=== PATIENT | male | born 1970 | race Caucasian/White ===

== ENCOUNTER 2020-10-30 19:46 | Inpatient (IN) | payer OTHER ==
[~2020-10-30] VITALS: Ht 182.9 cm; Wt 99.9 kg
[2020-10-30] MEDS ORDERED: LIPITOR80 MG PO ×2 (20:12→20:13)
[2020-10-30] MEDS ORDERED: Hydroxyzine HCl50 MG PO (20:12)
[2020-10-30] MEDS ORDERED: AMLODIPINE BESY10 MG PO (20:12)
[2020-10-30] MEDS ORDERED: JARDIANCE10 MG PO (20:12)
[2020-10-30] MEDS ORDERED: LISI5 PO (20:13)
[2020-10-30] MEDS ORDERED: METFORMIN HCL1000 M8 PO (20:13)
[2020-10-30] MEDS ORDERED: Lisinopril2.5 MG PO (20:13)
[2020-10-30 20:23] LABS: PCO2 Arterial 32.7 mmHg (35-45); PO2 Arterial 57.6 mmHg (80-100); pH Blood Arterial 7.47 (7.35-7.45)
[2020-10-30 21:00] LABS: BASOPHILS ABSOLUTE AUTO 0.03 K/mm3 (0.00-0.23); BASOPHILS PERCENT AUTO 0 % (0-2); EOSINOPHILS PERCENT AUTO 0 % (0-6); Hematocrit 40.1 % (37.0-53.0); Hemoglobin 13.7 g/dL (13.5-17.5); IMMATURE GRAN ABSOLUTE AUTO 0.16 K/mm3 (0.00-0.10); IMMATURE GRAN PERCENT AUTO 2 % (0-1); LYMPHOCYTES ABSOLUTE AUTO 0.77 K/mm3 (0.84-5.20); LYMPHOCYTES PERCENT AUTO 8 % (21-46); MONOCYTES ABSOLUTE AUTO 0.23 K/mm3 (0.16-1.47); MONOCYTES PERCENT AUTO 2 % (4-13); Mean Corpuscular HGB 29.8 pg (26.0-34.0); Mean Corpuscular HGB Conc 34.2 g/dL (31.5-36.5); Mean Corpuscular Volume 87 fL (80-100); Mean Platelet Volume 10.5 fL (9.1-12.4); NEUTROPHILS ABSOLUTE AUTO 8.55 K/mm3 (1.96-9.15); NEUTROPHILS PERCENT AUTO 88 % (41-73); NRBC ABSOLUTE 0.02 K/mm3 (0.00-0.02); NRBC Auto 0.2 /100 WBC (0.0-0.2); Platelet Count 269 K/mm3 (150-400); RDW Coefficient Variation 13.3 % (11.7-14.2); RDW Standard Deviation 42.3 fL (35.1-46.3); White Blood Cell Count 9.74 K/mm3 (4.00-11.30)
[2020-10-30 21:18] LABS: Alanine Aminotransfer (ALT/SGP 40 U/L (12-78); Albumin, Blood 2.7 g/dL (3.4-5.0); Albumin/Globulin Ratio 0.5 (0.8-1.8); Alk Phos 56 U/L (50-136); Anion Gap 9 mmol/L (6-16); Aspartate Aminotrans (AST/SGOT 51 U/L (12-37); Bilirubin, Total 0.5 mg/dL (0.1-1.0); Blood Urea Nitrogen 14 mg/dL (8-24); CO2, Blood 24 mmol/L (21-32); Calcium, Blood 8.4 mg/dL (8.5-10.1); Chloride, Blood 107 mmol/L (98-108); Creatinine, Blood 0.88 mg/dL (0.60-1.20); Globulin, Blood 5.1 g/dL (2.2-4.0); Glomerular Filtration Rate >60 (60-); Glucose, Blood 220 mg/dL (70-99); Potassium, Blood 3.3 mmol/L (3.5-5.5); Sodium, Blood 140 mmol/L (136-145); Total Protein, Blood 7.8 g/dL (6.4-8.2)
[2020-10-31 04:09] LABS: BASOPHILS ABSOLUTE AUTO 0.02 K/mm3 (0.00-0.23); BASOPHILS PERCENT AUTO 0 % (0-2); EOSINOPHILS PERCENT AUTO 0 % (0-6); Hematocrit 38.1 % (37.0-53.0); Hemoglobin 12.8 g/dL (13.5-17.5); IMMATURE GRAN ABSOLUTE AUTO 0.11 K/mm3 (0.00-0.10); IMMATURE GRAN PERCENT AUTO 1 % (0-1); LYMPHOCYTES ABSOLUTE AUTO 0.99 K/mm3 (0.84-5.20); LYMPHOCYTES PERCENT AUTO 12 % (21-46); MONOCYTES ABSOLUTE AUTO 0.21 K/mm3 (0.16-1.47); MONOCYTES PERCENT AUTO 3 % (4-13); Mean Corpuscular HGB 29.7 pg (26.0-34.0); Mean Corpuscular HGB Conc 33.6 g/dL (31.5-36.5); Mean Corpuscular Volume 88 fL (80-100); Mean Platelet Volume 10.4 fL (9.1-12.4); NEUTROPHILS ABSOLUTE AUTO 6.64 K/mm3 (1.96-9.15); NEUTROPHILS PERCENT AUTO 83 % (41-73); NRBC ABSOLUTE 0.02 K/mm3 (0.00-0.02); NRBC Auto 0.3 /100 WBC (0.0-0.2); Platelet Count 267 K/mm3 (150-400); RDW Coefficient Variation 13.3 % (11.7-14.2); RDW Standard Deviation 43.8 fL (35.1-46.3); Red Blood Cell Count 4.31 M/mm3 (4.30-5.90); White Blood Cell Count 7.97 K/mm3 (4.00-11.30)
[2020-10-31 04:37] LABS: Alanine Aminotransfer (ALT/SGP 42 U/L (12-78); Albumin, Blood 2.5 g/dL (3.4-5.0); Albumin/Globulin Ratio 0.5 (0.8-1.8); Alk Phos 55 U/L (50-136); Anion Gap 9 mmol/L (6-16); Aspartate Aminotrans (AST/SGOT 46 U/L (12-37); Bilirubin, Total 0.4 mg/dL (0.1-1.0); Blood Urea Nitrogen 16 mg/dL (8-24); Bun/Creatinine Ratio 20.1 (12.0-20.0); CO2, Blood 24 mmol/L (21-32); Calcium, Blood 8.4 mg/dL (8.5-10.1); Chloride, Blood 107 mmol/L (98-108); Globulin, Blood 4.7 g/dL (2.2-4.0); Glomerular Filtration Rate >60 (60-); Glucose, Blood 209 mg/dL (70-99); Potassium, Blood 3.4 mmol/L (3.5-5.5); Sodium, Blood 140 mmol/L (136-145); Total Protein, Blood 7.2 g/dL (6.4-8.2)
--- NOTE | 2020-10-31 05:50 | NUR ---
SHIFT SUMMARY S/P ACUTE RESPIRATORY FAILURE, A/O X4, VSS OTHER THAN O2 SATS WHICH ARE REQUIRING BIPAP c 90% FIO2 TO MAINTAIN > 95%, TOLERATING PO BUT CAN ONLY TAKE BIPAP OFF BRIEFLY TO DRINK. PT HAD A PANIC ATTACK R/T ANXIETY/CLAUSTROPHOBIA c HAVING THE BIPAP ON, PT REMOVED THE BIPAP AND DE-SATTED INTO THE 60'S, ATTEMPTED TO GET PT ON AIRVO c ASSISTANCE FROM RT WHO CAME INTO THE ROOM WHEN THIS STARTED, PT NOT ABLE TO MAINTAIN HIGHER THAN 87% ON 65L O2. ATTEMPTED TO CALM PATIENT, SENT FOR ATARAX FROM PHARMACY WE HAD NONE ON HAND IN [place]. PT STABILIZED AND WAS ABLE TO GET BACK ON BIPAP. ATARAX NOW AVAILABLE IN PATIENT DRAWER. NO OTHER ACUTE EVENTS THIS SHIFT, PT VS HAVE BEEN STABLE SINCE PANIC EVENT. CALL LIGHT IN REACH, WILL CTM AND REPORT TO DAY RN.
--- NOTE | 2020-10-31 17:34 | NUR ---
PHYSICIAN NOTIFIED PT UNABLE TO TOLERATE PO INTAKE AT THIS TIME. VERY MINIMAL URINE OUTPUT. PT TO RECIEVE NS AT 100 ML/HR. SEE ORDERS.
--- NOTE | 2020-10-31 18:11 | NUR ---
SHIFT SUMMARY PT ALERT AND ORIENTED X 4. HR STABLE. OXYGEN SATURATION ABOVE 90% ON CPAP AT 10% AND 90L. PT UNABLE TO TOLERATE PO INTAKE AT THIS TIME D/T REMOVAL OF CPAP. PHYSICIAN AWARE. IV FLUIDS ORDERED. PT ABLE TO TAKE SMALL BREAKS WITH NON-REBREATHER FOR SIPS OF FLUIDS/BITES OF FOOD. PT VERY ANXIOUS. PHYSICIAN AWARE, MEDICATED PER EMAR. AT BEDSIDE TO ALLEVIATE ANXIETY. HR STABLE. BP STABLE. NO CP OR PRESSURE. PT ABLE TO TURN SELF IN BED. WILL CONT TO MONITOR UNTIL REPORT GIVEN TO NIGHTSHIFT RN.
--- NOTE | 2020-10-31 18:37 | NUR ---
PHYSICIAN UPDATED PT SEA AHS OVER 600ML OF URINE IN BLADDER SEEN BY BLADDER SCAN. ORDERS FOR LUNA CATH AT THIS TIME.
--- NOTE | 2020-10-31 22:15 | NUR ---
UPDATE PHYSICIAN UPDATED ON PT HAVING IRRITATION FROM CATHETER. MEDICATION ORDERED IF PT ABLE TO TOLERATE PO MEDICATIONS.
--- NOTE | 2020-10-31 22:33 | NUR ---
PT HANDOFF REPORT TO BE GIVEN TO ELLYN PERALTA. VS STABLE. ORAL CARE PROVIDED, PT TOLERATED WELL. OXYGEN SATURATION MAINTAINED ABOVE 92% ON CPAP AT 10L/70%. PT REPORTS IRRITATION AT CATHETER SITE. SITE WNL, URINE DRAINING THROUGH TUBING. PHYSICIAN NOTIFIED. MEDICATION ORDERED IF PT ABLE TO TOLERATE PO INTAKE. WILL CONTINUE TO MONITOR UNTIL REPORT GIVEN.
--- NOTE | 2020-10-31 23:15 | NUR ---
ASSUMED CARE RECEIVED REPORT FROM RADHA RAGLAND AND ASSUMED PT CARE. PT IS RESTLESS AND C/O NAUSEA AND ANXIETY. HANDED IN PRN MEDS PER MAR AND WILL MONITOR FOR RELIEF. PT IS STABLE WITH SATS 92-96% ON CPAP AT 10 CM AND 70% FIO2. OCCASIONALLY PULLS AT MASK BUT REMAINS ALERT AND ORIENTED. WILL CONTINUE TO MONITOR AND WILL CONTINUE PLAN OF CARE.
--- NOTE | 2020-11-01 06:18 | NUR ---
PT HAS BEEN RESTING WELL FOR 2-3 HOURS AT A TIME AND THEN HAS SIGNIFICANT ANXIETY R/T CLAUSTROPHOBIA FROM THE CPAP MASK. CPAP AT 10 CM AND 70% FIO2 TO MAINTAIN SATS 92-95%. PT UNABLE TO TOLERATE BREAKS FROM THE CPAP WITHOUT DESATURATING INTO THE 70'S. ALERT AND ORIENTED, EASILY AROUSABLE FROM SLEEP. DOES NOT ALWAYS USE THE CALL LIGHT FOR ASSISTANCE, CONTINUOUS BIOX ALARM OUTSIDE OF THE ROOM HAS BEEN HELPFUL TO RECOGNIZE WHEN PT IS REMOVING CIPAP MASK. LUNA PATENT AND DRAINING DARK YELLOW URINE. POWERGLIDE IS RUNNING NS AT 100 ML/HR TO RIGHT UPPER ARM. OVERALL STATUS: STABLE AND MAINTAINING SATS LONG CPAP IS IN PLACE. WILL REPORT OFF TO DAY SHIFT RN.
[2020-11-01 18:37] LABS: Source, Urine Catheter
--- NOTE | 2020-11-01 18:39 | NUR ---
SHIFT SUMMARY PT ALERT AND ORIENTED X 4. VERY ANXIOUS AT TIMES. MEDICATED FOR ANXIETY. HR STABLE. BRADYCARDIC WHILE SLEEPING. BP STABLE. OXYGEN SATURATION MAINTAINED ABOVE 90% ON CPAP AT 12 L AND 65%. PT ABLE TO TURN SELF IN BED. LUNA IN PLACE TO GRAVITY DRAIN. AT BEDSIDE FOR EMOTIONAL SUPPORT. PT ABLE TO TOLERATE TRANSITION TO HIGH FLOW NC FOR ONE ENSURE DURING LUNCH AND FOR A SMALL AMOUNT OF DINNER. NOT ABLE TO TOLERATE FOR MORE THAN 10 MIN AT A TIME. PT ABLE TO TAKE PO MEDICATIONS THIS EVENING.NO CP OR PRESSURE REPORTED. WILL CONT TO MONITOR UNTIL REPORT GIVEN TO NIGHTSHIFT RN.
[2020-11-01 18:48] LABS: Appearance, Urine Clear (Clear); Bilirubin, Urine Neg (Neg); Blood, Urine 2+ (Neg); Color, Urine Yellow (P-Yellow); Glucose Qualitative, Urine 4+ (Neg); Ketones, Urine 1+ (Neg); Leukocyte Esterase, Urine 2+ (Neg); Nitrite, Urine Neg (Neg); Protein, Urine 2+ (Neg); Specific Gravity, Urine 1.015 (1.003-1.022); Urobilinogen, Urine NORM (Normal)
[2020-11-01 18:54] LABS: Bacteria Mod /hpf; Squamous Epithelial Cells Few /hpf (Few); White Blood Cells, Urine 25-50 /hpf (0-5)
[2020-11-02 05:28] LABS: Base Excess Venous 1.1 mmol/L; Bicarbonate Venous 24.2 mmol/L (24.0-30.0); PCO2 Venous 46.6 mmHg (38-42); PO2 Venous 34.1 mmHg (38-42); pH Blood Venous 7.36 (7.34-7.37)
[2020-11-02 05:42] LABS: BASOPHILS ABSOLUTE AUTO 0.01 K/mm3 (0.00-0.23); BASOPHILS PERCENT AUTO 0 % (0-2); EOSINOPHILS PERCENT AUTO 0 % (0-6); Hematocrit 36.9 % (37.0-53.0); Hemoglobin 11.8 g/dL (13.5-17.5); IMMATURE GRAN ABSOLUTE AUTO 0.18 K/mm3 (0.00-0.10); IMMATURE GRAN PERCENT AUTO 2 % (0-1); LYMPHOCYTES ABSOLUTE AUTO 0.59 K/mm3 (0.84-5.20); LYMPHOCYTES PERCENT AUTO 7 % (21-46); MONOCYTES ABSOLUTE AUTO 0.33 K/mm3 (0.16-1.47); MONOCYTES PERCENT AUTO 4 % (4-13); Mean Corpuscular HGB 29.9 pg (26.0-34.0); Mean Platelet Volume 10.4 fL (9.1-12.4); NEUTROPHILS ABSOLUTE AUTO 6.81 K/mm3 (1.96-9.15); NEUTROPHILS PERCENT AUTO 86 % (41-73); Platelet Count 334 K/mm3 (150-400); RDW Coefficient Variation 13.4 % (11.7-14.2); RDW Standard Deviation 46.5 fL (35.1-46.3); Red Blood Cell Count 3.95 M/mm3 (4.30-5.90); White Blood Cell Count 7.92 K/mm3 (4.00-11.30)
[2020-11-02 05:46] LABS: Mean Corpuscular Volume 93 fL (80-100)
--- NOTE | 2020-11-02 05:59 | NUR ---
SHIFT SUMMARY PT A+OX4 TO START SHIFT. CONFUSED AND ANXIOUS THROUGHOUT NIGHT. PT STATES HE NEEDS TO GET UP AND PEE, DESPITE CATHETER IN PLACE. UNSTEADY ON HIS FEET. FREQUENTLY TOOK OFF CPAP AND O2 SATS DROPPED INTO THE 70'S. WITH CPAP IN PLACE VSS. SATS MAINTAINED OVER 92% ON CPAP 12L 65% FIO2. POWERGLIDE IN UPPER RIGHT ARM INFUSING 100ML/HR NS AND LUNA IN PLACE DRAINING RALPH COLORED URINE. PT HAS BEEN RESTING AND LESS IMPULSIVE BETWEEN [id number]. WILL CONTINUE TO MONITOR UNTIL REPORT GIVEN
[2020-11-02 06:07] LABS: Alanine Aminotransfer (ALT/SGP 37 U/L (12-78); Albumin, Blood 2.3 g/dL (3.4-5.0); Albumin/Globulin Ratio 0.5 (0.8-1.8); Alk Phos 51 U/L (50-136); Anion Gap 4 mmol/L (6-16); Aspartate Aminotrans (AST/SGOT 23 U/L (12-37); Bilirubin, Total 0.3 mg/dL (0.1-1.0); Blood Urea Nitrogen 29 mg/dL (8-24); Bun/Creatinine Ratio 33.9 (12.0-20.0); CO2, Blood 27 mmol/L (21-32); Calcium, Blood 7.5 mg/dL (8.5-10.1); Chloride, Blood 113 mmol/L (98-108); Creatinine, Blood 0.86 mg/dL (0.60-1.20); Globulin, Blood 4.4 g/dL (2.2-4.0); Glomerular Filtration Rate >60 (60-); Glucose, Blood 305 mg/dL (70-99); Potassium, Blood 4.2 mmol/L (3.5-5.5); Sodium, Blood 144 mmol/L (136-145); Total Protein, Blood 6.7 g/dL (6.4-8.2)
--- NOTE | 2020-11-02 18:07 | NUR ---
SHIFT SUMMARY: ASSUMED CARE FOR THIS PATIENT ON 11/02/2020 AT 0715. PATIENT SPO2 WAS RANGING FROM 95-98% ON FIO2 OF 65% VIA CPAP. PATIENT TOLERATES SWITCHING TO THE HFT VIA AIRVO, AND NON REBREATHER AT 15L WITH SATURATIONS IN THE UPPER 95'S WHEN AT 55-65% FIO2. PATIENT WAS SLIGHLTY EXHAUSTED THIS MORNING, BUT HAS BEEN INCREASING IN ENERGY. PATIENT HAS BEEN WITH HIS DUC WHICH HAS DECREASED HIS ANXIETY TO THE POINT OF NOT NEEDING ANY ORDERED PRN ANXIETY MEDICATIONS THROUGH THE ENTIRE SHIFT. PATIENT HAS BEEN INCREASED SLIDING SCALES AND LONG ACTING INSULIN INCREASED. NEW CLINIMEX AND FAT EMULSION ORDERS. PATIENT HAS BEEN ABLE TO TOLERATE MORE AND MORE FOOD FROM THIS MORNING TO EVENING. POWERGLIDE TO THE RIGHT UPPER ARM CURRENTLY TRANSFUSING. PATIENT HAS BEEN COUGHING ONLY WHEN OFF OF CPAP.
[2020-11-03 04:08] LABS: BASOPHILS ABSOLUTE AUTO 0.01 K/mm3 (0.00-0.23); BASOPHILS PERCENT AUTO 0 % (0-2); EOSINOPHILS PERCENT AUTO 0 % (0-6); Hematocrit 36.1 % (37.0-53.0); Hemoglobin 11.6 g/dL (13.5-17.5); IMMATURE GRAN PERCENT AUTO 3 % (0-1); LYMPHOCYTES ABSOLUTE AUTO 0.66 K/mm3 (0.84-5.20); LYMPHOCYTES PERCENT AUTO 9 % (21-46); MONOCYTES ABSOLUTE AUTO 0.39 K/mm3 (0.16-1.47); MONOCYTES PERCENT AUTO 5 % (4-13); Mean Corpuscular HGB 29.7 pg (26.0-34.0); Mean Corpuscular HGB Conc 32.1 g/dL (31.5-36.5); Mean Corpuscular Volume 93 fL (80-100); Mean Platelet Volume 10.4 fL (9.1-12.4); NEUTROPHILS PERCENT AUTO 83 % (41-73); Platelet Count 324 K/mm3 (150-400); RDW Coefficient Variation 13.3 % (11.7-14.2); RDW Standard Deviation 45.3 fL (35.1-46.3); White Blood Cell Count 7.56 K/mm3 (4.00-11.30)
[2020-11-03 04:25] LABS: Albumin, Blood 2.2 g/dL (3.4-5.0); Anion Gap 4 mmol/L (6-16); Blood Urea Nitrogen 27 mg/dL (8-24); Bun/Creatinine Ratio 35.1 (12.0-20.0); CO2, Blood 27 mmol/L (21-32); Calcium, Blood 7.6 mg/dL (8.5-10.1); Chloride, Blood 111 mmol/L (98-108); Creatinine, Blood 0.77 mg/dL (0.60-1.20); Glomerular Filtration Rate >60 (60-); Glucose, Blood 312 mg/dL (70-99); Magnesium, Blood 2.7 mg/dL (1.6-2.4); Sodium, Blood 142 mmol/L (136-145)
--- NOTE | 2020-11-03 06:37 | NUR ---
SHIFT SUMMARY PT ON CPAP FOR MOST OF NIGHT. O2 SATS MAINTAINED OVER 95%. DID NOT TOLERATE AIRVO WELL. PT DESATS INTO THE 70'S WHILE OFF OF CPAP. A+OX3 AND CONFUSED AT TIMES. HR AND BP REMAIN STABLE. PT STATES HE IS FATIGUED AND WANTS LUNA OUT. . MUCH LESS ANXIOUS AND IMPULSIVE THIS EVENING AFTER VISIT FROM AND IMPROVED COMFORT WITH CPAP. CPAP AT 12L AND TITRATED DOWN TO 35% FIO2. PT LEFT IN BED SLEEPING WITH CALL ALARM AT SIDE. WILL CONTINUE TO MONITOR UNTIL REPORT GIVEN TO DAYSHIFT RN.
--- NOTE | 2020-11-03 12:42 | NUR ---
EKG PREFORMED: WHILE WORKING WITH THE PATIENT FOR LUNCH, AND MEDICATION, PATIENT HAD A SUDDEN CHEST PAIN THAT HE RATED A 7 OUT OF 10. PAIN WAS DESCRIBED SHARP AND TIGHT, HOWEVER, PATIENT WAS NOT CONCERBNED. ERRORING ON THE SIDE OF CAUTION PREFORMED AN EKG, EKG RESULTS WERE NEGATIVE. INFORMED PROVIDER VIA TELEPHONE AT 12:43. INSTRTUCTED TO OBSERVE AND IF FURTHER COMPLAINT TO ORDER A TROPONIN. PATIENT CURRNETLY ASLEEP WITH CPAP ON 35 FIO2 WILL OBSERVE FURTHER PAIN.
--- NOTE | 2020-11-03 18:56 | NUR ---
SHIFT SUMMARY: ASSUMED CARE OF PATIENT ON 11/03/2020 0700. PATIENT HAS BEEN INCREASINGLY MORE ENERGETIC, HIS FI02 HAS BEEN DROPPED TO 35% UNTIL APPROXIMATELY 1700 WHEN RT DID AN ASSESSMENT, SHE WAS ABLE TO TITRATE HIM DOWN TO AN OXIMIZER AT 5L, WHICH PATIENT HAS BEEN HANGING AT APPROXIMATELY 91%, WILL INFORM SILK FINISHER THAT SWITCHING TO CPAP WHILE SLEEPING MAY BE NECESSARY. PATIENT HAD A LARGE BM AND WHILE TRANSFERING TO BEDSIDE COMMODE HE SEMED MORE STABLE THAN PREVIOUSLY. CATHETER HAS BEEN FLOWING TO GRAVITY EFFECTIVELY, WITH AN INCREASED OUTPUT. PATIENT DID HAD CHEST TIGHTNESS WITH INCREASED LEVEL OF PAIN 10/03, TO WHICH AN EKG WAS PERFORMED. HOSPITALIST NOTIFIED. OBSERVE FOR MORE CHEST PAIN. NO MORE EPISODES OR MENTION OF CHEST PAIN BY MY ASSESSMENTS OR THE PATIENT. PATIENT HAS HAD DECREASED ANXIETY WITH AT BEDSIDE. CBG'S HAVE BEEN SLIGHTLY INCREASED HIS APPETITE IS RETURNING.
[2020-11-04 04:54] LABS: Anion Gap 3 mmol/L (6-16); Blood Urea Nitrogen 23 mg/dL (8-24); Bun/Creatinine Ratio 30.2 (12.0-20.0); CO2, Blood 29 mmol/L (21-32); Calcium, Blood 7.7 mg/dL (8.5-10.1); Chloride, Blood 107 mmol/L (98-108); Creatinine, Blood 0.76 mg/dL (0.60-1.20); Glomerular Filtration Rate >60 (60-); Glucose, Blood 261 mg/dL (70-99); Magnesium, Blood 2.3 mg/dL (1.6-2.4); Phosphorus, Blood 2.8 mg/dL (2.5-4.9); Potassium, Blood 3.8 mmol/L (3.5-5.5); Sodium, Blood 139 mmol/L (136-145)
--- NOTE | 2020-11-04 05:20 | NUR ---
shift summary pt rested well through most of night. alert and oriented, able to make needs known. cooperative with plan of care. sats >90% on oxymizer at 8-10lnc. pt declined wearing cpap at night, as he felt he could sleep better without. maintained sats well through the night. tele sinus rhythm 60's. denies chest pain, or palpitations. has oakes in place - draining clear, yellow urine - >1l uop. per day rn, pt tolerated all 3 meals during day, was able to call and get clinimix and lipids dc'd. pt is stand by assist to bedside commode, did have one bm. no c/o pain. vss. call light within reach, bed in lowest position. will continue to monitor.
--- NOTE | 2020-11-04 08:11 | NUR ---
NURSING PCU DAYSHIFT: Assumed care of pt at approx 0700. A/O, pleasant, cooperative w/care, anxious though improves w/staff support. Repositions independently though staff assist used during transfers for line management. C/O 4/10 low rib pain which worsens w/deep inspiration. Skin diaphoretic, intact w/no breakdown. Tele in place, SB, no c/o CP/pressure, SBP 120's, no noted edema. L/S w/bibasilar crackles L>R, dyspnea w/minimal exertion, O2 sat 91% 8L oxy, dry/MILL OILER cough. Abd SNT, BT+, FC in place, draining w/o difficulty. PG in RUE w/NS TKO. Pt denies any current needs or questions regarding plan of care. Educated on importance of deep breathing exercises. Pt currently sitting up in bed having breakfast, call light in reach, awaiting rounding from PMD, cont to monitor for any changes.
--- NOTE | 2020-11-04 09:51 | NUR ---
[place] of care Received report from meteorologist in charge, Idania. Pt is resting in bed with is call light in reach. Pt is currently on 8 LPM via oximizer while awake. He has been in NSR. Pt is A/O x 4. Possible status change today.
--- NOTE | 2020-11-04 16:16 | NUR ---
Shift Summary Pt is a/o x 4 and has no c/o pain. He continues on 8 lpm via nC while awake and has been sating in the 90's. His CBGs have been covered with sliding scale as ordered. He has a good appetite. The called and was updated. The pt is currently medical status ans is awaiting a bed upstairs, the pt and the are aware of the pending room move. Pt is able to make his needs known and calls for help when needed.
--- NOTE | 2020-11-04 18:31 | NUR ---
Pt has been assigned a room on medical floor and report has been called to [facility]. The room is still being cleaned so they will call us when it is clean and we will trasnfer the pt upstairs.
--- NOTE | 2020-11-05 05:08 | NUR ---
SHIFT SUMMARY A/O, ABLE TO MAKE NEEDS KNOWN. COOPERATIVE WITH CARE. CALLS AND ANSWERS QUESTIONS APPROPRIATELY. NO C/O PAIN/DISCOMFORT. APPEARED TO REST MUCH OF THE NIGHT. REMAINED ON 5L VIA OXYMIZER /c O2 SATURATIONS >90%. NO ACUTE CHANGES NOTED OVERNIGHT. BED REMAINED IN LOWEST POSITION. CALL LIGHT AND BELONGINGS WITHIN REACH. CONTINUE WITH CURRENT PLAN OF CARE. REPORT TO ONCOMING RN.
[2020-11-05 06:26] LABS: Anion Gap 5 mmol/L (6-16); Blood Urea Nitrogen 21 mg/dL (8-24); Bun/Creatinine Ratio 30.7 (12.0-20.0); CO2, Blood 26 mmol/L (21-32); Calcium, Blood 7.7 mg/dL (8.5-10.1); Chloride, Blood 105 mmol/L (98-108); Creatinine, Blood 0.68 mg/dL (0.60-1.20); Glomerular Filtration Rate >60 (60-); Glucose, Blood 285 mg/dL (70-99); Magnesium, Blood 2.5 mg/dL (1.6-2.4); Potassium, Blood 3.8 mmol/L (3.5-5.5); Sodium, Blood 136 mmol/L (136-145)
--- NOTE | 2020-11-05 16:46 | NUR ---
PT IS AWARE THAT HE IS DISCHARGING SOON, DECLINED TO HAVE AFTERNOON VITALS TAKEN, DECLINED TO HAVE BLOOD SUGAR CHECKED.
[2020-11-05] MEDS ORDERED: ACET325 PO (16:52)
[2020-11-05] MEDS ORDERED: INSULANPEN SC (16:53)
[2020-11-05] MEDS ORDERED: Tessalon200 MG PO (16:53)
[2020-11-05] MEDS ORDERED: DEXA6 PO (16:54)
--- NOTE | 2020-11-05 17:59 | NUR ---
NO ACUTE EVENTS THIS SHIFT, VSS ON 1 L OF O2 VIA NASAL CANNULA AT REST. PT ALERT AND ORIENTED, ABLE TO USE CALL LIGHT APPROPRIATELY. HOME O2 EVAL COMPLETED, SEE RT NOTE. [facility] AT BEDSIDE TO COORDINATE HOME O2 DELIVERY, PT DECLINED GETTING SETTING WET UP WITH HOME O2, CHOSE TO GO HOME WITH ONLY TEMPORARY O2 CANNISTER PROVIDED BY [facility]. THIS RN COMMUNICATED TO PATIENT THAT HE WAS DECLINING O2 AGAINST MEDICAL ADVICE, PATIENT CONFIRMED THAT HE WANTED TO DECLINE O2 SUPPLY. PT WAS PROVIDED DISCHARGE INFO REGARDING FOLLOW UP PLANS, REASONS TO RETURN TO THE HOSPITAL, AND MEDICATION INFORMATION. PT ENDORSED UNDERSTANDING. NO SIGNS OF ACUTE DISTRESS.
== END 2020-11-05 17:48 | disposition home or self-care (01) | DRG 871 ==
LOC: ER 19:46 → PCU 23:08 → ERHOLD 23:08 → PCU 10-31 01:51 → MEDS 11-04 20:32
PROVIDERS: Internal Medicine; Physician Assistant; ADMIT Internal Medicine
PROC: 8E0ZXY6 Isolation (ICD-10-PCS; principal; 2020-10-30)
PROC: XW033E5 Introduction of Remdesivir Anti-infective into Peripheral Vein, Percutaneous Approach, New Technology Group 5 (ICD-10-PCS; 2020-10-30)
PROC: 5A09457 Assistance with Respiratory Ventilation, 24-96 Consecutive Hours, Continuous Positive Airway Pressure (ICD-10-PCS; 2020-11-01)
PROC: 3E0333Z Introduction of Anti-inflammatory into Peripheral Vein, Percutaneous Approach (ICD-10-PCS; 2020-11-01)
PROC: 3E0336Z Introduction of Nutritional Substance into Peripheral Vein, Percutaneous Approach (ICD-10-PCS; 2020-11-02)
DX: A41.89 Other specified sepsis (principal); U07.1 COVID-19; J96.01 Acute respiratory failure with hypoxia; J12.82 Pneumonia due to coronavirus disease 2019; F41.9 Anxiety disorder, unspecified; R65.20 Severe sepsis without septic shock; E11.9 Type 2 diabetes mellitus without complications; E66.01 Morbid (severe) obesity due to excess calories; Z68.30 Body mass index [BMI] 30.0-30.9, adult; I10 Essential (primary) hypertension; E78.5 Hyperlipidemia, unspecified; Z79.84 Long term (current) use of oral hypoglycemic drugs; Z79.899 Other long term (current) drug therapy
CPT/HCPCS: 36415; 36600; 71045; 71260; 80048; 80053; 80069; 81001; 82728; 82803; 82947; 83615; 83735; 84100; 85025; 85379; 85651; 86141; 87086; 93005; 93010; 94660; 94761; 94762; 96372; 96374; 99285-25; A9270; C1751; J1100; J1650; J1815; J2060; J2405; J7030; J7050; Q9967

== ENCOUNTER 2021-02-09 09:20 | Day surgery (SDC) | payer OTHER ==
[~2021-02-09] VITALS: Ht 182.9 cm; Wt 100.6 kg
[~2021-02-09 09:20] MED LIST: ACET325 PO; AMLODIPINE BESY10 MG PO; DEXA6 PO; Hydroxyzine HCl50 MG PO; INSULANPEN SC; JARDIANCE10 MG PO; LIPITOR80 MG PO; LISI20 PO; LISI5 PO; Lisinopril2.5 MG PO; METFORMIN HCL1000 M8 PO; Tessalon200 MG PO
--- NOTE | 2021-02-09 10:40 | NUR ---
02/09/21 1040 Judith Bird History, Chart, Medications and Allergies reviewed before start of procedure. Patient confirms NPO status and agrees with scheduled surgery. 3-LEAD EKG REVIEWED WITH PHYSICIAN PRIOR TO START OF PROCEDURE. MONITOR INTACT WITH CONTINUOUS PULSE OXIMETRY AND INTERMITTENT BP. PATIENT DETERMINED TO BE ASA APPROPRIATE FOR PROPOFOL SEDATION PRIOR TO START OF PROCEDURE BY .
--- NOTE | 2021-02-09 11:33 | NUR ---
Ambulatory in Day Surgery. Discharge instructions reviewed with patient. Patient verbalizes understanding. Copy given to patient to take home. Patient States Post-Procedure ride home has been arranged. Discharged via wheelchair to private car for ride home.
== END 2021-02-09 11:33 | disposition home or self-care (01) ==
LOC: ORSCMMR 09:20 → ORD 10:30 → ORSCMMR 10:30
PROVIDERS: Surgery
PROC: 0DBN8ZX Excision of Sigmoid Colon, Via Natural or Artificial Opening Endoscopic, Diagnostic (ICD-10-PCS; principal; 2021-02-09 10:30)
DX: Z12.11 Encounter for screening for malignant neoplasm of colon (principal); K63.5 Polyp of colon; I10 Essential (primary) hypertension; E78.2 Mixed hyperlipidemia; E11.9 Type 2 diabetes mellitus without complications; Z79.899 Other long term (current) drug therapy; Z87.891 Personal history of nicotine dependence
CPT/HCPCS: 82947; 88305; J2704; J7120

== ENCOUNTER 2022-07-17 22:24 | Emergency (ER) | payer OTHER ==
[~2022-07-17] VITALS: Ht 182.9 cm; Wt 95.2 kg
[2022-07-17 23:45] VITALS: BP 147/98
== END 2022-07-18 00:35 | disposition home or self-care (01) ==
LOC: ER 22:24
DX: T23.252A Burn of second degree of left palm, initial encounter (principal); T23.272A Burn of second degree of left wrist, initial encounter; I10 Essential (primary) hypertension; E11.9 Type 2 diabetes mellitus without complications; E78.00 Pure hypercholesterolemia, unspecified; Z79.899 Other long term (current) drug therapy; Z79.84 Long term (current) use of oral hypoglycemic drugs; X08.8XXA Exposure to other specified smoke, fire and flames, initial encounter
CPT/HCPCS: 96372; 99283-25; A9270; J1885